=== PATIENT | female | born 1965 | race Caucasian/White ===

== ENCOUNTER → 2017-07-28 | Outpatient (CLI) | payer BC, OTHER ==
[~2017-07-28] MED LIST: TRAZ50TA35 PO
--- NOTE | 2017-07-29 15:08 | MAMMOGRAPHY REPORT ---
BILATERAL DIGITAL SCREENING MAMMOGRAM TOMOSYNTHESIS WITH CAD: 07/28/2017 CLINICAL HISTORY: Routine screening. Patient has no complaints. TECHNIQUE: Breast tomosynthesis in addition to standard 2D mammography was performed. Current study was also evaluated with a Computer Aided Detection (CAD) system. COMPARISON: Comparison is made to exams dated: 07/24/2016 mammogram, 03/15/2015 mammogram - [facility], 09/14/2013 mammogram, 05/30/2011 mammogram, 05/30/2011 mammogram, and 05/30/2011 [facility]. BREAST COMPOSITION: The tissue of both breasts is heterogeneously dense, which may obscure small mas ses. FINDINGS: No new suspicious mass, architectural distortion or cluster of microcalcifications is seen . IMPRESSION: ACR BI-RADS CATEGORY 1: NEGATIVE There is no mammographic evidence of malignancy. A 1 year screening mammogram is recommended. The pa tient will receive written notification of the results. Approximately 10% of breast cancers are not detected with mammography. A negative mammographic report should not delay biopsy if a clinically suggestive mass is present. Jadyn Carey M.D. ay/:07/28/2017 15:20:52 Sql Tech: Jimmy Dodd, M, [facility] letter sent: Normal 1/2 BI-RADS Code: ACR BI-RADS Category 1: Negative
== END | disposition home or self-care (01) ==
LOC: C.MAMM 14:25
PROVIDERS: ATTEND Family Medicine
DX: Z12.31 Encounter for screening mammogram for malignant neoplasm of breast (principal)

== ENCOUNTER 2018-03-27 16:21 | Emergency (ER) | payer BC, OTHER ==
[~2018-03-27] VITALS: Ht 163.8 cm; Wt 75.7 kg
[2018-03-27 16:26] VITALS: BP 133/78; TEMP 36.7; Ht 163.8 cm; Wt 75.7 kg
--- NOTE | 2018-03-27 16:58 | EMERGENCY ROOM VISIT NOTE ---
History First contact with patient: 16:31 Chief Complaint: RABIES VACCINE Stated Complaint: WILD KITTEN BITE, RABBIES VACINATION History of Present Illness The patient is a 52 year old female who presents to the Emergency Room with complaints of a cat bite to her left thumb. The patient states that the bite occurred 2 days ago. She and a friend have been helping to care for wild kittens. She states that she was carrying the cat when it bit her left thumb. She was seen by a provider at her primary care provider's office yesterday and prescribed Augmentin. She contacted the department of health today who recommended that she come here for rabies vaccinations. She states that they are unable to capture the cat for observation. She denies any pain in the thumb. Her tetanus is up-to-date. Review of Systems A complete 6 point review of systems was reviewed with the patient with pertinent positives and negatives as per history of present illness. All else were negative. Past Medical/Surgical History Medical Problems: (1) No significant active problems Social History Smoking Status: Former Smoker Alcohol Use: none Marital Status: in relationship Current/Historical Medications Scheduled Trazodone Hcl (Trazodone), 25 MG PO HS Physical Exam Vital Signs Date Time Temp Pulse Resp B/P (MAP) Pulse Ox O2 Delivery O2 Flow Rate FiO2 03/27/18 18:17 75 18 97 03/27/18 16:26 36.7 82 17 133/78 96 Room Air Physical Exam VITALS: Vitals are noted on the nurse's note and reviewed by myself. Vital signs stable. GENERAL: This is a 52-year-old female, in no acute distress, well-developed well -nourished. SKIN: There is a tiny mildly erythematous puncture wound to the left thumb. No surrounding erythema or warmth. MUSCULOSKELETAL: Full range of motion of left thumb. Capillary refill within 2 seconds. NEURO: Patient was alert and oriented to person place and time. Distal sensation intact. Medical Decision & Procedures Medications Administered Medications (Trade) Dose Ordered Sig/Carmella Route Start Time Stop Time Status Last Admin Dose Admin Rabies Immune Globulin (Imogam Rabies Inj) 1,500 interunit ONCE ONCE IM. 03/27/18 17:00 03/27/18 17:01 DC 03/27/18 17:32 1,500 INTERUNIT Rabies Vaccine Human Diploid Cell (Imovax Rabies) 2.5 interunit ONCE ONCE IM. 03/27/18 17:00 03/27/18 17:01 DC 03/27/18 17:30 2.5 INTERUNIT Medical Decision The patient was evaluated as above. She is already taking Augmentin which was previously prescribed to her. She was given rabies immunoglobulin at a dose of 20 mg/kg. 1 mL of rabies immunoglobulin was infiltrated directly into the bite. She was given 2.5 units of Imovax IM. She was advised to return for her remaining injections. She verbalized understanding of my assessment and treatment plan and was discharged home in good condition. Medication Reconcilliation Current Medication List: was personally reviewed by ga Blood Pressure Screening Patient's blood pressure: Normal blood pressure Impression Primary Impression: Rabies, need for prophylactic vaccination against Additional Impression: Cat bite Departure Information Dispostion Home / Self-Care Condition GOOD Referrals Mariana Lewis M.D. (PCP) Patient Instructions My [facility] Additional Instructions You will need to return for the remainder of the rabies series. Today is considered day 0. You will need to return on days 3, 7 and 14. Dates to return: 03/30/18 04/03/18 04/10/18 Return here for any signs of infection such as increasing redness, swelling, drainage or fevers. Problem Qualifiers Additional Impression: Cat bite Encounter type: initial encounter Qualified Codes: W55.01XA - Bitten by cat , initial encounter
[2018-03-27] MEDS ORDERED: RABIES IMMUNE GLOBULIN (HUMAN) 150 INTER.UNIT/ML 2 ML VIAL IM. ONE (17:00)
[2018-03-27] MEDS ORDERED: RABIES VACCINE (IMOVAX) HUMAN DIPL CELL 2.5 INTER.UNIT/ML SYR IM. ONE (17:00)
[2018-03-27 18:17] VITALS: PULSE 75; O2SAT 97
== END 2018-03-27 18:14 | disposition home or self-care (01) ==
LOC: C.EDB 16:24 → C.EDD 18:14
DX: Z23 Encounter for immunization (principal); Z20.3 Contact with and (suspected) exposure to rabies; S61.052A Open bite of left thumb without damage to nail, initial encounter; W55.01XA Bitten by cat, initial encounter; Y93.K9 Activity, other involving animal care; Z87.891 Personal history of nicotine dependence

== ENCOUNTER 2018-03-30 15:38 | Emergency (ER) | payer BC ==
[~2018-03-30] VITALS: Ht 163.8 cm; Wt 75.0 kg
[2018-03-30 15:46] VITALS: BP 138/78; PULSE 66; TEMP 36.6; O2SAT 98; Ht 163.8 cm; Wt 75.0 kg
[2018-03-30] MEDS ORDERED: RABIES VACCINE (IMOVAX) HUMAN DIPL CELL 2.5 INTER.UNIT/ML SYR IM. ONE (16:15)
--- NOTE | 2018-03-31 15:28 | EMERGENCY ROOM VISIT NOTE ---
ED Visit Note First contact with patient: 15:52 Chief Complaint: Rabies Immunization Return Visit. History of Present Illness: Ms. Snyder is a 52 year-old white female who ambulates into the ED requesting her second rabies immunization vaccination after an exposure to [place] cat. She after her last immunization shot she she had no reactions to the medications. Reports she is feeling fine today and denies any symptoms. She denies fevers, chills, sweats, skin eruptions, skin color changes, headaches, joint pains, upper respiratory tract symptoms, shortness of breath, decreased appetite, abdominal pain, nausea/vomiting. Review of Symptoms: As noted above in history of present illness. Past Medical History, Current Medications, Allergies and Social History: As noted on previous visit. Physical Exam: VITAL SIGNS - Date Time Temp Pulse Resp B/P (MAP) Pulse Ox O2 Delivery O2 Flow Rate FiO2 03/30/18 15:46 36.6 66 18 138/78 98 Room Air GENERAL - Patient is in no acute distress, non-toxic appearing, afebrile and hemodynamic stable. NEUROLOGICAL: Awake, alert and oriented X3. Answering questions appropriately and following commands. No focal motor or sensory defects. SKIN - Warm, dry and pink. Right Upper Extremity: In the area of her cat bite on the thumb and her cat scratches on her arm there are no signs of infection. RESPIRATORY - Clear to auscultation bilaterally. No wheezes, rales, or rhonchi appreciated. ED Course: Patient is assessed as noted above. Previous ED visit note was reviewed. Patient was give 2.5 units of rabies immune vacs IM. Patient was reassessed and had no additional symptoms. Patient was educated about today's finding and instructed on their treatment plan; they verbalized understanding and agreement with this plan. Clinical Impression: Rabies Prophylaxis. Disposition: Patient discharged to home in stable condition; prior to dischage patient subjectively reported she was not experiencing any pain or other symptoms Plan: Patient was encouraged to continue her current treatment recommendations from her first immunization series shot and to return to emergency department for her third shot on the schedule already provided. Patient was encouraged return the ED for any adverse side effects or any new/ concerning symptoms.
== END 2018-03-30 16:25 | disposition home or self-care (01) ==
LOC: C.EDB 15:40 → C.EDD 16:25
DX: Z23 Encounter for immunization (principal); Z20.3 Contact with and (suspected) exposure to rabies

== ENCOUNTER 2018-04-03 14:40 | Emergency (ER) | payer BC ==
[~2018-04-03] VITALS: Ht 162.6 cm; Wt 75.9 kg
[2018-04-03 14:44] VITALS: BP 132/75; PULSE 69; TEMP 36.5; O2SAT 100; Ht 162.6 cm; Wt 75.9 kg
[2018-04-03] MEDS ORDERED: RABIES VACCINE (IMOVAX) HUMAN DIPL CELL 2.5 INTER.UNIT/ML SYR IM. ONE (14:49)
--- NOTE | 2018-04-03 14:54 | EMERGENCY ROOM VISIT NOTE ---
ED Visit Note First contact with patient: 14:46 CHIEF COMPLAINT: Rabies prophylaxis HISTORY OF PRESENT ILLNESS: This 52-year-old femur patient presents to the emergency department, ambulatory, for their third rabies shot. 1 week ago, the patient was bitten on the left thumb by a cat. The count was unable to be captured. She is currently on Augmentin and states the cat bite is healing well. The patient has not had any complications from the previous injections. They deny any other complaints. REVIEW OF SYSTEMS: A 6 system review of systems was completed with positives and pertinent negatives listed in the HPI. ALLERGIES: None MEDICATIONS: Trazodone, Augmentin, Symbicort, Lexapro PMH: GERD, anxiety, depression, asthma PHYSICAL EXAM: Vital Signs: Reviewed Nurse's notes, vital signs stable. GENERAL : This is a 52-year-old female, in no acute distress, well-developed, well- nourished. HEAD: Atraumatic, without temporal or scalp tenderness. EYES: PERRLA, EOMI, no discharge or injection. SKIN: Normal. NEUROLOGICAL: Alert and cooperative. Sensory and motor functions grossly intact. HEART: Regular rate and rhythm. No murmurs, gallops, rubs. LUNGS: CTA bilaterally. No wheezes, rhonchi, rales. EMERGENCY DEPARTMENT COURSE: I examined the patient. The patient was given Imovax 1ml IM. The patient was observed for 20 minutes with no reaction. The patient was discharged home in stable condition. I attest that I have personally reviewed the patient's current medication list. Patient was found to have normal blood pressure on screening and does not require follow-up. DIAGNOSIS: Rabies prophylaxis The chart was completed utilizing [employer] Speech voice recognition software. Grammatical errors, random word insertions, pronoun errors, and incomplete sentences are an occasional consequence of this system due to software limitations, ambient noise, and hardware issues. Any formal questions or concerns about the content, text, or information contained within the body of this dictation should be directly addressed to the provider for clarification. Current/Historical Medications Scheduled Trazodone Hcl (Trazodone), 25 MG PO HS Allergies Coded Allergies: No Known Allergies (Unverified , 09/22/11) Vital Signs Date Time Temp Pulse Resp B/P (MAP) Pulse Ox O2 Delivery O2 Flow Rate FiO2 04/03/18 14:44 36.5 69 17 132/75 100 Room Air 04/03/18 14:41 36.5 69 17 132/75 100 Room Air Departure Information Impression Primary Impression: Need for rabies vaccination Dispostion Home / Self-Care Condition GOOD Referrals Mariana Lewis M.D. (PCP) Patient Instructions My [facility] Additional Instructions You were seen in the emergency department today for your third rabies vaccination. Please return on day 14 for your final vaccination. Follow previous care outlined to you. Return to the ED for side effects or concerns related to the vaccine or otherwise.
== END 2018-04-03 15:01 | disposition home or self-care (01) ==
LOC: C.EDB 14:41 → C.EDD 15:01
DX: Z23 Encounter for immunization (principal); Z20.3 Contact with and (suspected) exposure to rabies; J45.909 Unspecified asthma, uncomplicated; F41.9 Anxiety disorder, unspecified; F32.9 Major depressive disorder, single episode, unspecified; Z79.899 Other long term (current) drug therapy

== ENCOUNTER 2018-04-10 15:51 | Emergency (ER) | payer BC ==
[~2018-04-10] VITALS: Ht 162.6 cm; Wt 76.0 kg
[2018-04-10 16:00] VITALS: BP 124/78; PULSE 75; TEMP 36.7; O2SAT 98; Ht 162.6 cm; Wt 76.0 kg
[2018-04-10] MEDS ORDERED: RABIES VACCINE (IMOVAX) HUMAN DIPL CELL 2.5 INTER.UNIT/ML SYR IM. ONE (16:15)
--- NOTE | 2018-04-10 16:25 | EMERGENCY ROOM VISIT NOTE ---
ED Visit Note First contact with patient: 16:01 CHIEF COMPLAINT: "final rabies vaccine" HISTORY OF PRESENT ILLNESS: This 52-year-old female patient presents to the emergency department via private vehicle for their final rabies immunization. The patient has not had any complications from the previous injections. They deny any other complaints. REVIEW OF SYSTEMS: A 6 system review of systems was completed with positives and pertinent negatives listed in the HPI. ALLERGIES: None MEDICATIONS: As noted below PMH: Unchanged from previous visit. PHYSICAL EXAM: Vital Signs: Reviewed Nurse's notes, vital signs stable. GENERAL : 52-year-old female, in no acute distress, well-developed, well-nourished. HEAD: SKIN: Normal. NEUROLOGICAL: Alert and cooperative. EMERGENCY DEPARTMENT COURSE: I examined the patient. The patient was given 2.5 international units/ 1ml IM. The patient was observed for 20 minutes with no reaction. The patient was discharged home in stable condition. Current/Historical Medications Scheduled Trazodone Hcl (Trazodone), 25 MG PO HS Allergies Coded Allergies: No Known Allergies (Unverified , 09/22/11) Vital Signs Date Time Temp Pulse Resp B/P (MAP) Pulse Ox O2 Delivery O2 Flow Rate FiO2 04/10/18 16:00 36.7 75 16 124/78 98 Room Air Medications Administered Medications (Trade) Dose Ordered Sig/Carmella Route Start Time Stop Time Status Last Admin Dose Admin Rabies Vaccine Human Diploid Cell (Imovax Rabies) 2.5 interunit ONCE ONCE IM. 04/10/18 16:15 04/10/18 16:16 DC 04/10/18 16:13 2.5 INTERUNIT Departure Information Impression Primary Impression: Rabies, need for prophylactic vaccination against Dispostion Home / Self-Care Condition GOOD Referrals Mariana Lewis M.D. (PCP) Patient Instructions My [facility] Additional Instructions You were seen in the emergency department for your fourth, and final rabies vaccination of the series. Please watch for fevers, chills, or reaction to the injections. If you develop any symptoms please return immediately
== END 2018-04-10 16:28 | disposition home or self-care (01) ==
LOC: C.EDD 15:53
DX: Z20.3 Contact with and (suspected) exposure to rabies (principal); Z23 Encounter for immunization